=== PATIENT | male | born 1995 | race Asian ===

== ENCOUNTER → 2021-01-25 16:30 | Outpatient (CLI) | payer OTHER, SELFPAY ==
--- NOTE | 2021-01-25 16:36 | DI.MRI.S_ITS ---
PROCEDURE: MR LUMBAR SPINE WO CON INDICATIONS: RADICULOPATHY, LUMBAR REGION TECHNIQUE: Noncontrast sagittal T1 spin echo and T2 fast echo, sagittal STIR, axial T1 and T2 fast spin echo through the lumbar spine. In cases with scoliosis, additional coronal T2 fast spin echo may be performed. COMPARISON: None. FINDINGS: Image quality: Excellent. Alignment and Curvature: There is normal bony alignment. Bone Marrow: Marrow is of normal overall signal. Apparent fatty metaplasia can be seen of the sacrum and the iliac wings. No acute vertebral body compression fractures. Spinal Cord: Conus medullaris terminates at the L1 level. Visualized cord demonstrates normal signal and size. Paraspinous Soft Tissues: No paravertebral masses. T12-L1: Normal appearance. L1-L2: Level within normal limits. L2-L3: The disc height and disk signal are well-preserved. No significant disc bulge is seen. Mild facet joint hypertrophy is seen. Moderate bilateral neural foraminal narrowing is seen. Mild central canal narrowing is seen. L3-L4: The disc height and disk signal are well-preserved. Mild generalized disc bulge is seen. Mild to moderate facet hypertrophy is seen. Moderate bilateral neural foraminal narrowing is seen. Mild central canal narrowing is seen. L4-L5: The disc height and disk signal are well-preserved. Mild generalized disc bulge is seen. There is at least moderate bilateral neural foraminal narrowing seen, left worse than right. There is a degree of compression seen upon the exiting nerve roots, left worse than right. No significant central canal narrowing is seen. L5-S1: The disc height and disk signal are well-preserved. Minimal disc bulge is seen. Mild facet joint hypertrophy is seen. There is mild to moderate left-sided and minimal right-sided neural foraminal narrowing seen. The central canal is widely patent. IMPRESSION: Several levels of neural foraminal narrowing and mild central canal narrowing can be seen. The imaging appearance is most consistent with a short pedicle syndrome. Dictated by: Connor Markham M.D. on 01/25/2021 at 17:00 Approved by: Connor Markham M.D. on 01/25/2021 at 17:04
== END ==
PROVIDERS: Referring Provider Family Medicine; Visit Provider Family Medicine
DX: M54.16 Radiculopathy, lumbar region (principal); M48.061 Spinal stenosis, lumbar region without neurogenic claudication
CPT/HCPCS: 72148